=== PATIENT | female | born 1965 | race Asian ===

== ENCOUNTER 2019-03-23 05:02 | Emergency (ER) | payer MEDICAID, SELFPAY ==
[~2019-03-23] VITALS: Ht 152.4 cm; Wt 68.2 kg
[~2019-03-23 05:02] MED LIST: NO HOME MEDS
[2019-03-23] MEDS ORDERED: albuterol 2.5 mg/0.5ml nebule NEB ONE (05:10)
[2019-03-23] MEDS ORDERED: albuterol 2.5 MG/3 ML nebule NEB ONE (05:15)
--- NOTE | 2019-03-23 05:49 | NUR ---
PT REPORTS POSITIVE EFFECT WITH BREATHING TX.
[2019-03-23] MEDS ORDERED: ipratropium/albuterol 3ml nebule NEB ONE (06:50)
[2019-03-23] MEDS ORDERED: aspirin 81mg tab.chew PO ONE (06:50)
[2019-03-23 07:27] LABS: BASOPHILS # (AUTO) 0.1 X10'3 (0-0.2); BASOPHILS % (AUTO) 1.1 % (0-1); EOSINOPHILS # (AUTO) 0.4 X10'3 (0-0.9); EOSINOPHILS % (AUTO) 5.7 % (0-6); HEMATOCRIT 41.6 % (35.0-45.0); HEMOGLOBIN 14.1 g/dl (12.0-16.0); LYMPHOCYTES # (AUTO) 2.7 X10'3 (1.1-4.8); MEAN CORPUSCULAR HEMOGLOBIN 27.8 PG (27.0-31.0); MEAN CORPUSCULAR HGB CONC 33.9 g/dL (33.0-36.5); MEAN CORPUSCULAR VOLUME 81.9 FL (78-98); MEAN PLATELET VOLUME 8.5 FL (7.4-10.4); MONOCYTES # (AUTO) 0.3 X10'3 (0-0.9); MONOCYTES % (AUTO) 4.8 % (2-12); NEUTROPHILS % (AUTO) 46.4 % (42-75); PLATELET COUNT 272 X10'3 (140-440); RED BLOOD COUNT 5.08 X10'6 (4.20-5.60); WHITE BLOOD COUNT 6.4 X10'3 (4.5-11.0)
[2019-03-23 07:38] LABS: ALBUMIN 3.8 G/DL (3.4-5.0); ALKALINE PHOSPHATASE 102 IU/L (46-116); ANION GAP 12 (8-16); BILIRUBIN,TOTAL 0.5 MG/DL (0.1-1.0); BLOOD UREA NITROGEN 16 MG/DL (7-18); BUN/CREATININE RATIO 25.8 (6.6-38.0); CHLORIDE 101 MMOL/L (99-107); CREATININE 0.62 MG/DL (0.40-0.90); SODIUM 139 MMOL/L (135-145); TOTAL CARBON DIOXIDE 25.6 MMOL/L (24-32); eGFR > 90 ML/MIN
[2019-03-23 07:39] LABS: GLUCOSE 203 MG/DL (70-104); POTASSIUM 3.4 MMOL/L (3.5-5.1); TOTAL PROTEIN 7.8 G/DL (6.4-8.2)
[2019-03-23 07:57] LABS: ALANINE AMINOTRANSFERASE 25 U/L (12-78); ASPARTATE AMINO TRANSFERASE 13 U/L (10-37)
[2019-03-23] MEDS ORDERED: INHA1INH2 (08:59)
[2019-03-23 09:32] VITALS: BP 123/83
== END 2019-03-23 09:28 | disposition home or self-care (01) ==
LOC: ER 05:02
DX: S93.491A Sprain of other ligament of right ankle, initial encounter (principal); J45.901 Unspecified asthma with (acute) exacerbation; W18.39XA Other fall on same level, initial encounter; Y93.89 Activity, other specified; Y92.89 Other specified places as the place of occurrence of the external cause; Y99.8 Other external cause status
CPT/HCPCS: 36415; 71045; 73600; 80053; 84484; 85025; 93005; 94640; 94760; 99284; J7611

== ENCOUNTER 2019-05-04 13:26 | Outpatient (CLI) | payer MEDICAID ==
[~2019-05-04 13:26] MED LIST changes: +INHA1INH2
== END 2019-05-04 23:59 | disposition home or self-care (01) ==
LOC: RAD 13:26
PROVIDERS: ATTEND Student in an Organized Health Care Education/Training Program
DX: R55 Syncope and collapse (principal); M25.571 Pain in right ankle and joints of right foot; J45.909 Unspecified asthma, uncomplicated
CPT/HCPCS: 95816

== ENCOUNTER 2020-06-05 12:34 | Outpatient (CLI) | payer MEDICAID | END 2020-06-05 23:59 | disposition home or self-care (01) | LOC: RAD 12:34 | DX: R55 Syncope and collapse (principal) | CPT/HCPCS: 95819 ==

== ENCOUNTER 2020-09-05 17:35 | Emergency (ER) | payer MEDICAID ==
[~2020-09-05] VITALS: Ht 152.4 cm; Wt 65.9 kg
[2020-09-05] MEDS ORDERED: predniSONE 20 mg tablet PO ONE (18:30)
[2020-09-05] MEDS ORDERED: albuterol 2.5 MG/3 ML nebule NEB ONE (18:30)
[2020-09-05] MEDS ORDERED: DEC4T PO (18:50)
[2020-09-05] MEDS ORDERED: ALB0.5UD IH (19:40)
[2020-09-05] MEDS ORDERED: ALBU8HFA PO (19:40)
[2020-09-05 19:50] VITALS: BP 132/75
== END 2020-09-05 19:52 | disposition home or self-care (01) ==
LOC: ER 17:36
DX: R06.02 Shortness of breath (principal); R53.83 Other fatigue; J45.909 Unspecified asthma, uncomplicated; Z79.899 Other long term (current) drug therapy
CPT/HCPCS: 36415; 94640; 99283; J7512; 94760

== ENCOUNTER 2020-09-11 06:05 | Emergency (ER) | payer MEDICAID ==
[~2020-09-11] VITALS: Ht 152.4 cm; Wt 65.0 kg
[~2020-09-11 06:05] MED LIST changes: +ALB0.5UD IH; +ALBU8HFA PO; +DEC4T PO
[2020-09-11] MEDS ORDERED: aspirin 81mg tab.chew PO ONE ×2 (06:15→07:05)
[2020-09-11] MEDS ORDERED: nitroGLYCERIN 0.4mg SUBLingual tab SL PRN (07:05)
[2020-09-11 08:15] LABS: BASOPHILS # (AUTO) 0.1 X10'3 (0-0.2); BASOPHILS % (AUTO) 0.9 % (0-1); EOSINOPHILS % (AUTO) 0.2 % (0-6); HEMOGLOBIN 12.3 g/dl (12.0-16.0); LYMPHOCYTES # (AUTO) 1.3 X10'3 (1.1-4.8); LYMPHOCYTES % (AUTO) 15.5 % (21-51); MEAN CORPUSCULAR HEMOGLOBIN 27.1 PG (27.0-31.0); MEAN CORPUSCULAR HGB CONC 33.1 g/dL (33.0-36.5); MEAN CORPUSCULAR VOLUME 81.7 FL (78-98); MEAN PLATELET VOLUME 7.1 FL (7.4-10.4); MONOCYTES # (AUTO) 0.7 X10'3 (0-0.9); MONOCYTES % (AUTO) 7.7 % (2-12); NEUTROPHILS # (AUTO) 6.4 X10'3 (1.8-7.7); NEUTROPHILS % (AUTO) 75.7 % (42-75); PLATELET COUNT 590 X10'3 (140-440); RED BLOOD COUNT 4.53 X10'6 (4.20-5.60); WHITE BLOOD COUNT 8.5 X10'3 (4.5-11.0)
[2020-09-11 08:34] LABS: ALANINE AMINOTRANSFERASE 27 U/L (12-78); ALBUMIN 3.2 G/DL (3.4-5.0); ALBUMIN/GLOBULIN RATIO 0.7 (1.1-1.5); ALKALINE PHOSPHATASE 87 IU/L (46-116); ANION GAP 13 (8-16); ASPARTATE AMINO TRANSFERASE 11 U/L (10-37); BILIRUBIN,TOTAL 0.4 MG/DL (0.1-1.0); BLOOD UREA NITROGEN 6 MG/DL (7-18); CALCIUM 9.5 MG/DL (8.5-10.1); CHLORIDE 104 MMOL/L (99-107); GLUCOSE 184 MG/DL (70-104); POTASSIUM 3.2 MMOL/L (3.5-5.1); SODIUM 144 MMOL/L (135-145); TOTAL CARBON DIOXIDE 27.5 MMOL/L (24-32); TOTAL PROTEIN 7.6 G/DL (6.4-8.2); eGFR > 90 ML/MIN
[2020-09-11 08:40] LABS: MAGNESIUM 2.2 MG/DL (1.5-2.4)
[2020-09-11] MEDS ORDERED: potassium Cl 20 mEq SR tablet PO STA (08:49)
[2020-09-11 12:06] VITALS: BP 134/86
== END 2020-09-11 12:09 | disposition home or self-care (01) ==
LOC: ER 06:05
DX: F43.29 Adjustment disorder with other symptoms (principal); R00.2 Palpitations; R42 Dizziness and giddiness; E87.6 Hypokalemia; R07.89 Other chest pain; R06.02 Shortness of breath; R11.0 Nausea; J45.909 Unspecified asthma, uncomplicated; Z79.899 Other long term (current) drug therapy
CPT/HCPCS: 36415; 71045; 80053; 83735; 83880; 84484; 85025; 99285